=== PATIENT | female | born 2000 | race Caucasian/White ===

== ENCOUNTER 2022-07-18 22:25 | Outpatient (CLI) | payer MEDICARE, MEDICAID, SELFPAY ==
[2022-07-18 17:05] LABS: Albumin* 4.9 g/dL (3.3-5.0); Chloride* 102 mmol/L (96-114)
[2022-07-18 17:06] LABS: Potassium* 4.7 mmol/L (3.6-5.1); Sodium* 138 mmol/L (135-149)
[2022-07-18 17:08] LABS: Aspartate Amino Transferase* 21 U/L (12-35); Bilirubin Total* 0.4 mg/dL (0.1-1.5); Carbon Dioxide* 26 mmol/L (20-32); Creatinine* 0.8 mg/dL (0.5-1.5); Estimated Glomerular Filt Rate 107 ml/min; Total Protein* 8.2 g/dL (6.0-8.3)
[2022-07-18 17:09] LABS: Alanine Aminotransferase* 13 U/L (4-35); Alkaline Phosphatase* 104 U/L (40-150); Blood Urea Nitrogen* 19 mg/dL (5-24); Glucose* 105 mg/dL (60-115)
[2022-07-18 17:19] LABS: Vitamin D 25 Hydroxy* 48 ng/mL (30-80)
== END 2022-07-18 22:26 | disposition home or self-care (01) ==
PROVIDERS: PCP Family Medicine; Visit Provider Nurse Practitioner Family
DX: Z79.899 Other long term (current) drug therapy (principal)
CPT/HCPCS: 80053; 82306; 84443

== ENCOUNTER 2024-01-18 13:35 | Outpatient (RCR) | payer MEDICAID, SELFPAY | END 2025-01-06 07:27 | disposition home or self-care (01) | LOC: MOW 13:35 | PROVIDERS: Visit Provider Registered Nurse | DX: Z76.0 Encounter for issue of repeat prescription (principal) | CPT/HCPCS: S5170 ==